=== PATIENT | female | born 1970 | race Two or more races ===

== ENCOUNTER 2024-12-08 12:00 | Emergency (ER) | payer MEDICAID, SELFPAY ==
[2024-12-08 12:01] VITALS: BMI 30.2
[2024-12-08 12:10] VITALS: BP 178/82; PULSE 60; RESP 19; TEMP 37.1; O2SAT 95
--- NOTE | 2024-12-08 12:16 | XR_ITS ---
Examination: Abdomen sonogram, Limited Date and time of exam: December 08, 2024 1301 hrs. Indications: Right upper abdominal pain beginning 4 days ago Technique: Real-time resendiz scale transabdominal sonographic images of the upper abdomen obtained. Findings: Contracted gallbladder Gallbladder wall 0.3 cm Common bile duct 0.1 cm Pancreatic head 2.6 cm Liver 13.5 cm no focal liver lesions Normal hepatopedal portal venous oh Patent IVC Impression: Repeat the gallbladder portion of this study with fasting Normal common bile duct Liver normal size fatty infiltration
--- NOTE | 2024-12-08 12:16 | XR_ITS ---
Examination: PA lateral chest 2 views Technique: Upright PA lateral chest 2 views Exam date and time: December 08, 2024 12:30 PM Indications: Right-sided chest pain and abdominal pain today Findings: Mild enlargement cardiac contour Prominent vascular congestion Atelectasis versus early pneumonia right base The osseous structures are intact Impression: Suspicious for early heart failure Atelectasis versus early pneumonia right base, clinical correlation advised
--- NOTE | 2024-12-08 12:17 | PD.EDABDPN ---
ED Abdominal Pain RME/HPI General Chief Complaint: Abdominal Pain Stated complaint: RIGHT UPPER ABD PAIN RADIATING TO SHOULDER Arrival date/time: 12/08/24 12:00 54-year-old female with no known medical history presents to the emergency room with a chief complaint of right upper quadrant tenderness that radiates up her right shoulder x 2 days Source: patient Mode of arrival: ambulatory Limitations: no limitations Related Data Home Medications ?Medication ?Instructions ?Recorded ?Confirmed Nitrofurantoin Macrocrystals SR * 100 mg PO BID #0 caps 08/15/15 (MACROBID *) Previous Rx's ?Medication ?Instructions ?Recorded Phenazopyridine * (PYRIDIUM *) 100 mg PO Q8HR PRN urinary 08/15/15 discomfort #15 tabs amoxicillin 875 mg-potassium 1 tab PO BID sinusitis #19 tabs 02/27/21 clavulanate 125 mg tablet (Augmentin) Allergies Allergy/AdvReac Type Severity Reaction Status Date / Time No Known Allergies Allergy Verified 12/08/24 12:01 ED Exam General Limitations: Present no limitations Course Orders Category Date Time Status EKG (ED ONLY) *Do not use* NOW Care 12/08/24 12:[address] abdomen pelvis wo con Stat Exams 12/08/24 12:16 Ordered EKG (ED Only) Stat Exams 12/08/24 12:16 Ordered US gall bladder Stat Exams 12/08/24 12:16 Ordered XR chest 2V Stat Exams 12/08/24 12:16 Ordered B-Type Natriuretic Peptide Stat Lab 12/08/24 12:16 Ordered CBC Stat Lab 12/08/24 12:16 Ordered CMP [Comprehensive Metabolic Panel] Stat Lab 12/08/24 12:16 Ordered HCG Qualitative,Urine Stat Lab 12/08/24 12:16 Ordered Lipase Stat Lab 12/08/24 12:16 Ordered Troponin I Stat Lab 12/08/24 12:16 Ordered UA [Urinalysis] Stat Lab 12/08/24 12:16 Ordered Urine Culture Stat Lab 12/08/24 12:16 Ordered Vital Signs Vital signs: Vital Signs Temperature 98.7 F 12/08/24 12:10 Pulse Rate 60 12/08/24 12:10 Respiratory Rate 19 12/08/24 12:10 Blood Pressure 178/82 H 12/08/24 12:10 Pulse Oximetry (%) 95 12/08/24 12:10 Oxygen Delivery Method Room Air 12/08/24 12:10 Discharge Plan Prescriptions/Referrals Prescriptions/Med Rec: No Action Nitrofurantoin Macrocrystals SR * (MACROBID *) 100 MG capsule 100 mg PO BID Qty: 0 Phenazopyridine * (PYRIDIUM *) 100 MG tablet 100 mg PO Q8HR PRN (Reason: urinary discomfort) Qty: 15 0RF amoxicillin-pot clavulanate [Augmentin] 875-125 mg tablet 1 tab PO BID Qty: 19 0RF Patient/Caregiver Discharge Instructions Print Language: Portuguese
[2024-12-08 12:56] LABS: Basophils % (Auto) 0 % (0-2.5); Eosinophils # (Auto) 0.2 Thou/mm3 (0.0-0.5); Eosinophils % (Auto) 2 % (0-10); Hematocrit 42.1 % (36.0-46.0); Hemoglobin 14.6 g/dL (12.0-16.0); Immature Granulocytes % (Auto) 0 % (0-0); Immature Granulocytes Auto 0.03 Thou/mm3 (0.00-0.00); Lymphocytes % (Auto) 21 % (10-50); Mean Corpuscular HGB Conc 34.7 g/dl (31.0-37.0); Mean Corpuscular Hemoglobin 31.5 pg (25.0-35.0); Mean Corpuscular Volume 91 fL (80-100); Monocytes # (Auto) 0.6 Thou/mm3 (0.0-0.8); Monocytes % (Auto) 7 % (0-12); Neutrophils # (Auto) 6.6 Thou/mm3 (1.8-7.7); Neutrophils % (Auto) 70 % (37-80); Nucleated Red Blood Cell % 0 /100 WBC (0); Platelet Count 262 Thou/mm3 (140-440); Red Blood Count 4.63 Miln/mm3 (4.00-5.20); White Blood Count 9.4 Thou/mm3 (3.6-11.0)
[2024-12-08 13:15] LABS: B-Type Natriuretic Peptide 66 pg/mL (0-100)
[2024-12-08 13:21] LABS: Alanine Aminotransferase 43 U/L (10-49); Albumin, Serum 4.2 gm/dL (3.5-5.0); Albumin/Globulin Ratio 1.4 (1.2-2.2); Alkaline Phosphatase 133 U/L (46-116); Anion Gap 9 (7-16); Aspartate Amino Transferase 19 U/L (0-34); BUN/Creatinine Ratio 12 Ratio (12-20); Bilirubin,Total 0.4 mg/dL (0.3-1.2); Blood Urea Nitrogen 14 mg/dL (9-23); Calcium 9.4 mg/dL (8.3-10.6); Calcium (Corrected) 9.4 mg/dL (8.5-10.1); Carbon Dioxide 26.9 mMol/L (20.0-31.0); Chloride 99 mMol/L (98-107); Creatinine (Component) 1.2 mg/dL (0.6-1.3); Estimated Creatinine Clearance 46.3 mL/min (>60); Globulin 3.1 gm/dL (2.3-3.5); Lipase 49 U/L (12-53); Osmolality,Calculated 288 (275-295); Sodium 135 mMol/L (136-145); Total Protein 7.3 gm/dL (5.7-8.2); Troponin I < 0.002 ng/mL (0.0-0.045); eGFR 53 See Note
[2024-12-08 13:23] LABS: Glucose 422 mg/dL (74-106)
--- NOTE | 2024-12-08 13:28 | PD.EDRME ---
Rapid Medical Screening Exam RME Arrival date/time: 12/08/24 12:00 54-year-old female with no known medical history presents to the emergency room with a chief complaint of right upper quadrant tenderness that radiates up her right shoulder x 2 days I have greeted and performed a focused initial assessment of this patient. A comprehensive ED assessment and evaluation of the patient, analysis of all test results, and completion of the medical decision making process will be conducted by additional ED providers. Chief Complaint: Abdominal Pain Vital signs: Vital Signs Temperature 98.7 F 12/08/24 12:10 Pulse Rate 60 12/08/24 12:10 Respiratory Rate 19 12/08/24 12:10 Blood Pressure 178/82 H 12/08/24 12:10 Pulse Oximetry (%) 95 12/08/24 12:10 Oxygen Delivery Method Room Air 12/08/24 12:10 Vital signs reviewed by provider: Yes
--- NOTE | 2024-12-08 14:51 | PRELIM_ITS ---
Gallbladder ultrasound. December 08, 2024 1301 hours Clinical history: Right upper quadrant pain. Patient states to have eaten at 10 AM today. Findings: The evaluation is limited due to patient not taking in deep breaths to hold. The visualized liver demonstrates heterogeneous echotexture without mass or ductal dilatation. The main portal vein is patent and demonstrates hepatopetal flow. The gallbladder is contracted. No gallbladder calculus, wall thickening or pericholecystic fluid is identified. The common duct is normal in caliber at 1 mm. The pancreatic tail is obscured by bowel gas. No free fluid is demonstrated on the submitted images. The inferior vena cava is unremarkable to the extent visualized. Impression: Limited evaluation as described. Contracted gallbladder, possibly postprandial. No sonographic evidence of cholelithiasis, acute cholecystitis or biliary obstruction. Consider repeat examination with adequate fasting, as clinically indicated. Findings suggestive of liver parenchymal disease. Report Electronically Signed By: Tres Gibbs 12/08/2024 2:50:50 PM [EST]
[2024-12-08 15:33] LABS: Collection Type, Urine Clean Catch; Squamous Epithelial Cell,Urine 0 /hpf (0-5)
[2024-12-08 15:45] LABS: Bilirubin,Urine Negative (Negative); Blood,Urine Negative (Negative); Clarity,Urine Clear (Clear/Hazy); Color,Urine Colorless (Lt Yel-Yel); Glucose, Urine 4+ (Negative); Ketones,Urine Negative (Negative); Leukocyte Esterase,Urine Positive (Negative); Nitrite,Urine Negative (Negative); PH,Urine 6.5 (5.0-7.0); Protein,Urine Negative (Neg - Trace); RBC,Urine 1 /hpf (0-3); Specific Gravity,Urine 1.013 (1.001-1.035); Urobilinogen,Urine Negative mg/dL (0.0-1.0); WBC,Urine 19 /hpf (0-5)
--- NOTE | 2024-12-08 15:46 | EDNOTE_ITS ---
ED General RME/HPI General Chief complaint: Abdominal Pain Stated complaint: RIGHT UPPER ABD PAIN RADIATING TO SHOULDER Time Seen by Provider: 12/08/24 15:35 Arrival date/time: 12/08/24 12:00 RME / HPI RME / HPI narrative: 12/08/24 12:00 54-year-old female with no known medical history presents to the emergency room with a chief complaint of right upper quadrant tenderness that radiates up her right shoulder x 2 days I have greeted and performed a focused initial assessment of this patient. A comprehensive ED assessment and evaluation of the patient, analysis of all test results, and completion of the medical decision making process will be conducted by additional ED providers. DR. PERDOMO MAIN ED EVALUATION 54 year old female with history of hypertension and pre-diabetes presents to the ED for evaluation of pain just below the right breast with radiation around to her right flank/back beginning 2 days ago. Described as aching in sensation rating as moderate. Accompanied by feeling feverish. Denies measuring temperature at home. Denies cough, shortness of breath, abdominal pain, nausea, vomiting, diarrhea, or urinary symptoms. Related Data Home Medications ?Medication ?Instructions ?Recorded ?Confirmed Nitrofurantoin Macrocrystals SR * 100 mg PO BID #0 cap s 08/15/15 (MACROBID *) Previous Rx's ?Medication ?Instructions ?Recorded Phenazopyridine * (PYRIDIUM *) 100 mg PO Q8HR PRN urin marlyn 08/15/15 discomfort #15 tabs amoxicillin 875 mg-potassium 1 tab PO BID sinusitis #1 9 tabs 02/27/21 clavulanate 125 mg tablet (Augmentin) amoxicillin 875 mg-potassium 1 tab PO BID #20 tabs clavulanate 125 mg tablet Allergies Allergy/AdvReac Type Severity Reaction Status Date / Time No Known Allergies Allergy Verified 12/08/24 12:01 Review of Systems Review of Systems Narrative Review of Systems: GEN: No fever, no chills, no weight loss EYES: No discharge, no visual changes, no pain HEENT: No ear pain, no congestion, no sore throat PULM: No shortness of breath, no cough, no congestion CV: +pain just below the right breast. No dyspnea on exertion, no palpitations GI: No nausea, no vomiting, no diarrhea, no pain, no constipation : No frequency, no urgency and no dysuria MUSC/SKEL No joint pain, no back pain SKIN: No rash NEURO: No weakness, no headache Past Medical History Past Medical History NEUROLOGIC: Negative Neurological Disorders CARDIAC: Positive Cardiac Disorders and Hypertension; Negative Congestive Heart Failure RESPIRATORY: Negative Chronic Obstructive Pulmonary Disease (COPD) GASTROINTESTINAL: Negative Gastrointestinal Disorders GENITOURINARY: Negative Genitourinary Disorders or Renal Disease REPRODUCTIVE: Negative Pelvic Inflammatory Disease MUSCULOSKELETAL: Negative Musculoskeletal Disorders ENDOCRINE: Positive Diabetes Mellitus Type 2; Negative Endocrine Disorders or Diabetes Mellitus Type 1 HEMATOLOGIC: Negative Blood Disorders Social History SMOKING STATUS: Never smoker SUBSTANCE USE: does not use ED Exam Narrative Physical exam: GENERAL APPEARANCE: Well hydrated, well nourished, in no acute distress. VITALS: All vitals were reviewed and the pulse ox is 95% on room air which is normal according to my interpretation. HEENT: Normocephalic, atramatic, EOMI, EACs are patent. There is no bulge or retraction. Throat without erythema or exudate. Moist oromucosa. No jaundice NECK: Supple, no JVD or bruits. CARDIOVASCULAR: Heart regular without S3-S4 or murmur. No rubs or gallops. LUNGS/CHEST: Clear to auscultation bilaterally. No rales, rhonchi, or wheezing. Normal inspection. ABDOMEN: Soft, nontender, with normal bowel sounds. No pulsatile masses. No rebound, rigidity, or guarding. No incarcerated hernia. Normal inspection and palpation. EXTREMITIES: Normal inspection and palpation. No edema, clubbing, or cyanosis. Intact CSM SKIN: Warm and dry without rashes. Normal inspection. MUSCULOSKELETAL: Normal inspection. No gross deformity, full ROM all extremities NEURO: Alert and oriented x3. Cranial nerves II through XII grossly intact. There are no other motor or sensory deficits noted. PSYCHIATRIC: Normal mood and affect. No psychosis. Course Quality Measures none Orders Category Date Time Status CT Screening NOW Care 12/08/24 15:47 Active EKG (ED ONLY) *Do not use* NOW Care 12/08/24 12:[address] chest abdomen pelvis w Stat Exams 12/08/24 15:47 Completed EKG (ED Only) Stat Exams 12/08/24 12:16 Ordered US gall bladder Stat Exams 12/08/24 12:16 Completed XR chest 2V Stat Exams 12/08/24 12:16 Completed B-Type Natriuretic Peptide Stat Lab 12/08/24 12:30 Completed CBC Stat Lab 12/08/24 12:30 Completed CMP [Comprehensive Metabolic Panel] Stat Lab 12/08/24 12:30 Completed HCG Qualitative,Urine Stat Lab 12/08/24 13:20 Completed Lipase Stat Lab 12/08/24 12:30 Completed Troponin I Stat Lab 12/08/24 12:30 Completed UA [Urinalysis] Stat Lab 12/08/24 13:20 Completed Urine Culture Stat Lab 12/08/24 13:20 Received Amoxicillin/Pot Clav 875 [Augmentin 875] Med 12/08/24 18:07 Discontinued 1 tab PO X1 ONE Sodium Chloride 0.9% 1000 ml [Ns] 1,000 ml Med 12/08/24 15:48 Discontinued IV 999 mls/hr Vital Signs Vital signs: Vital Signs Temperature 98.7 F 12/08/24 12:10 Pulse Rate 60 12/08/24 12:10 Respiratory Rate 19 12/08/24 12:10 Blood Pressure 178/82 H 12/08/24 12:10 Pulse Oximetry (%) 95 12/08/24 12:10 Oxygen Delivery Method Room Air 12/08/24 12:10 [facility] Patient data External records reviewed:: [facility] previous records (I reviewed ED visit on 06/16/2022) Clinical information provided by:: patient Social determinants that could affect healthcare access:: none Patient has the following chronic illnesses:: HTN, pre-diabetic How is presenting disease/condition affected by chronic disease/condition?: e xacerbated by Evaluation data The following diagnostics were reviewed and interpreted by me:: lab results and radiology exam(s) Lab and/or radiology exams considered but not ordered:: None Interpretation Summary: Ordering Physician: Sammy Ruano Date of Service: 12/08/24 Procedure(s): XR chest 2V Accession Number(s): [id number] cc: Sammy Ruano; Nick Brasher MD~ Examination: PA lateral chest 2 views Technique: Upright PA lateral chest 2 views Exam date and time: December 08, 2024 12:30 PM Indications: Right-sided chest pain and abdominal pain today Findings: Mild enlargement cardiac contour Prominent vascular congestion Atelectasis versus early pneumonia right base The osseous structures are intact Impression: Suspicious for early heart failure Atelectasis versus early pneumonia right base, clinical correlation advised Dictated By: Nick Brasher MD Signed By: <Electronically signed by Nick Brasher MD in [place]> 12/08/24 1303 ======= Ordering Physician: Sammy Ruano Date of Service: 12/08/24 Procedure(s): US gall bladder Accession Number(s): [id number] cc: Sammy Ruano; Nick Brasher MD~ Examination: Abdomen sonogram, Limited Date and time of exam: December 08, 2024 1301 hrs. Indications: Right upper abdominal pain beginning 4 days ago Technique: Real-time resendiz scale transabdominal sonographic images of the upper abdomen obtained. Findings: Contracted gallbladder Gallbladder wall 0.3 cm Common bile duct 0.1 cm Pancreatic head 2.6 cm Liver 13.5 cm no focal liver lesions Normal hepatopedal portal venous oh Patent IVC Impression: Repeat the gallbladder portion of this study with fasting Normal common bile duct Liver normal size fatty infiltration Dictated By: Nick Brasher MD Signed By: <Electronically signed by Nick Brasher MD in [place]> 12/08/24 1504 = ====== Ordering Physician: Nick Perdomo MD Date of Service: 12/08/24 Procedure(s): CT chest abdomen pelvis w Accession Number(s): [id number] cc: Nick Brasher MD; Nick Perdomo MD~ Examination: CT chest with intravenous contrast CT abdomen with intravenous contrast CT pelvis with intravenous contrast 2-D coronal and sagittal reconstructions Time of exam: December 08, 2024 1856 hrs. Indications: Chest pain radiating to the right shoulder beginning 4 days ago with abdominal pain CTDI: vol (mGy) : 7.54 DLP: (mGycm): 491 Technique: Multiple axial images of the chest, abdomen and pelvis with intravenous contrast, 3.0 mm slice thickness. Images obtained post intravenous injection Isovue 370 60 cc. 2-D sagittal and coronal reconstructions. Low dose protocols were performed. One or more of the following dose reduction techniques were used; automated exposure control, adjustment of the mA and/or KV according to patient size, use of iterative reconstruction technique. Findings: No thoracic aortic aneurysmal dilatation or dissection No pulmonary artery emboli on this non-CTA study Mild enlargement cardiac contour Pneumonia at the lung bases Mild vascular congestion No pulmonary edema Definite mucosal thickening in the gastric antrum axial image 137 Fatty liver Gallbladder wall is mildly prominent Spleen is not enlarged No pancreatic or adrenal mass No renal or ureteral calculi, no hydronephrosis Aorta normal size Normal appendix Minimal small bowel ileus No obstruction No diverticulitis Partially retroverted uterus No adnexal mass Contracted urinary bladder Advanced degenerative disc disease L3-L4, L5-S1 Impression: Negative for pulmonary artery emboli Mild bibasilar pneumonia Recommend hepatobiliary sonography follow-up Gastritis pattern Normal appendix Minimal small bowel ileus No diverticulitis Dictated By: Nick Brasher MD Signed By: <Electronically signed by Nick Brasher MD in [place]> 12/08/24 1746 Medications Medications considered but not ordered:: None Medication administrations:: Medication Administration History Discontinued Medications Amoxicillin/Clavulanate Potassium (Amoxicillin/Pot Clav 875 Tablet) 1 tab PO X1 ONE Stop: 12/08/24 18:08 Sodium Chloride (Ns) 1,000 mls @ 999 mls/hr IV .Q1H1M ONE Stop: 12/08/24 16:48 Last Admin: 12/08/24 16:16 Dose: 999 mls/hr Documented By: TM See above Consultations Consultation(s) initiated? (list below): No Diagnosis Differential Diagnosis ED Complaint MDM: Abdominal pain, gallstones, kidney stones Most likely diagnosis given after review of the tests above:: Pneumonia Atypical chest pain Diabetic hyperglycemia Admission Indicated Admission indicated?: not indicated Explain why admission is indicated or not indicated:: Does not meet admission criteria Admission Request Was there a request for admission?: No Disposition Plan Disposition Plan: Discharge Discharge Attestation Discharge Attestation: The patient and all family members were given an opportunity to ask questions and understood the discharge instructions. Discharge instructions specifically effects, indications for sooner follow up or return to the emergency department, and the expected course of current diagnosis. Patient condition: Stable Medical Decision Making MDM Narrative MDM Narrative: The pain is right lower chest. On exam she has clear lungs. Heart is normal. Abdomen is benign. Nontender. No rebound. Negative Christian. No flank tenderness. UA is negative. test negative. BNP negative. Troponin negative. CBC negative. CMP is remarkable for a sugar of 422 for which we are giving her a liter normal saline bolus. There is no sign of DKA. Chest x-ray interpreted by me: Evidence of right base pneumonia. Heart normal. Mediastinum normal. Normal bones. No CHF. For pneumonia we are giving her Augmentin by mouth Ultrasound gallbladder, CT chest abdomen and pelvic have been performed. Please see Dr. Nick Brasher's report Twelve-lead EKG that was done at 12:17 p.m. and interpreted by me: Sinus rhythm. Heart rate 55. No ST elevation or depression. No PVC. No STEMI. Regular rate and rhythm. Patient have no respiratory problem. After the IV fluid bolus will check her blood sugar again and make sure that it is less than 250 before she goes home. Otherwise we are going to give her some more IV fluid. For the pneumonia we are giving her Augmentin by mouth and will continue to do so at home. She can take Motrin for pain. There is no surgical abdomen at this time. Differential Diagnosis Differential Diagnosis: Abdominal pain, gallstones, kidney stones Lab Data 12/08/24 12:30 12/08/24 12:30 Labs: Lab Results 12/08/24 12/08/24 Range/Units 12:30 13:20 WBC 9.4 (3.6-11.0) Thou/mm3 RBC 4.63 (4.00-5.20) Miln/mm3 Hgb 14.6 (12.0-16.0) g/dL Hct 42.1 (36.0-46.0) % MCV 91 (80-100) fL MCH 31.5 (25.0-35.0) pg MCHC 34.7 (31.0-37.0) g/dl RDW Std Deviation 40.0 (36.4-46.3) fL Plt Count 262 (140-440) Thou/mm3 Neut % (Auto) 70 (37-80) % Lymph % (Auto) 21 (10-50) % [place] % (Auto) 7 (0-12) % Eos % (Auto) 2 (0-10) % Baso % (Auto) 0 (0-2.5) % Neut # (Auto) 6.6 (1.8-7.7) Thou/mm3 Lymph # (Auto) 2.0 (1.0-4.8) Thou/mm3 [place] # (Auto) 0.6 (0.0-0.8) Thou/mm3 Eos # (Auto) 0.2 (0.0-0.5) Thou/mm3 Baso # (Auto) 0.0 (0.0-0.2) Thou/mm3 Immature Gran # (Auto) 0.03 H (0.00-0.00) Thou/mm3 Absolute Nucleated RBC 0.00 (0.00-0.00) Thou/mm3 Immature Gran % 0 (0-0) % Nucleated RBC % 0 (0) /100 WBC Sodium 135 L (136-145) mMol/L Potassium 4.0 (3.4-5.1) mMol/L Chloride 99 (98-107) mMol/L Carbon Dioxide 26.9 (20.0-31.0) mMol/L Anion Gap 9 (7-16) BUN 14 (9-23) mg/dL Creatinine 1.2 (0.6-1.3) mg/dL Estim Creat Clear Calc 46.3 L (>60) mL/min eGFR 53 L (60 - ) See Note BUN/Creatinine Ratio 12 (12-20) Ratio Glucose 422 H* (74-106) mg/dL Calculated Osmolality 288 (275-295) Calcium 9.4 (8.3-10.6) mg/dL Corrected Calcium 9.4 (8.5-10.1) mg/dL Total Bilirubin 0.4 (0.3-1.2) mg/dL AST 19 (0-34) U/L ALT 43 (10-49) U/L Alkaline Phosphatase 133 H (46-116) U/L Troponin I < 0.002 (0.0-0.045) ng/mL B-Natriuretic Peptide 66 (0-100) pg/mL Total Protein 7.3 (5.7-8.2) gm/dL Albumin 4.2 (3.5-5.0) gm/dL Globulin 3.1 (2.3-3.5) gm/dL Albumin/Globulin Ratio 1.4 (1.2-2.2) Lipase 49 (12-53) U/L Ur Collection Type Clean Catch Urine Color Colorless A (Lt Yel-Yel) Urine Clarity Clear (Clear/Hazy) Urine pH 6.5 (5.0-7.0) Ur Specific [place] 1.013 (1.001-1.035) Urine Protein Negative (Neg - Trace) Urine Glucose (UA) 4+ A (Negative) Urine Ketones Negative (Negative) Urine Blood Negative (Negative) Urine Nitrite Negative (Negative) Urine Bilirubin Negative (Negative) Urine Urobilinogen (Auto) Negative (0.0-1.0) mg/dL Ur Leukocyte Esterase Positive (Negative) Urine RBC 1 (0-3) /hpf Urine WBC 19 H (0-5) /hpf Ur Squamous Epith Cells 0 (0-5) /hpf Urine Bacteria None (None) Urine HCG, Qual Negative Discharge Plan Plan Patient Disposition: HOME (Self Care) Disposition Comment: Stable for [place] home Prescriptions/Referrals Prescriptions/Med Rec: New amoxicillin-pot clavulanate 875-125 mg tablet 1 tab PO BID Qty: 20 0RF No Action Nitrofurantoin Macrocrystals SR * (MACROBID *) 100 MG capsule 100 mg PO BID Qty: 0 Phenazopyridine * (PYRIDIUM *) 100 MG tablet 100 mg PO Q8HR PRN (Reason: urinary discomfort) Qty: 15 0RF amoxicillin-pot clavulanate [Augmentin] 875-125 mg tablet 1 tab PO BID Qty: 19 0RF Problem List Clinical Impression: Pneumonia, Diabetes mellitus with hyperglycemia, Non-cardiac chest pain Patient/Caregiver Discharge Instructions Education Materials: ED Diabetes with High Blood Sugar, ED Pneumonia (Adult) Additional Instructions: Augmentin for pneumonia. Continue medication for sugar diabetes Avoid added sugar. Follow-up with your medical doctor in 3 days for recheck and further care. You can take Motrin for pain. Return the nearest emergency department if condition worsens or if new symptoms develop. Print Language: Tuvaluan Stand Alone Forms: Kenisha Award Info., Patient Portal Info Letter
[2024-12-08 16:11] VITALS: BP 170/86; PULSE 53; RESP 16; TEMP 36.9; O2SAT 95
[2024-12-08] MEDS: SODIUM CHLORIDE 0.9% 1000 ML 1,000 ML 999 ML IV (16:16)
[2024-12-08 16:23] LABS: HCG Qualitative,Urine Negative
== END 2024-12-08 19:05 | disposition home or self-care (01) ==
PROVIDERS: Nurse Practitioner Family; Emergency Provider Emergency Medicine
DX: J18.9 Pneumonia, unspecified organism (principal); E11.65 Type 2 diabetes mellitus with hyperglycemia; R07.89 Other chest pain; I10 Essential (primary) hypertension
CPT/HCPCS: 36415; 71046; 71260; 74177; 76705; 80053; 81001; 81025; 83690; 83880; 84484; 85025; 87077; 87086; 87186; 93005; 99284; A4649; J7030; Q9967